=== PATIENT | female | born 1960 | race Caucasian/White ===

== ENCOUNTER 2016-06-15 10:11 | Day surgery (SDC) | payer MEDICARE, MEDICAID ==
[~2016-06-15] VITALS: Ht 165.1 cm; Wt 79.5 kg
[2016-06-15] VITALS (8 sets, daily range): BP systolic 126–139; BP diastolic 68–74; PULSE 76–82; RESP 12–25; O2SAT 92–97
[~2016-06-15 10:11] MED LIST: DOXY100C2 PO; DULO20CA PO; FLUT1AER IH; LEVO137T18 PO; LIT450 PO; OMEP20TA24 PO
[2016-06-15] MEDS ORDERED: MetoCLOpramide 5 mg/mL 2 mL Inj ONE (10:12)
[2016-06-15] MEDS ORDERED: Propofol 10,000 mCg/mL 20 mL Inj ONE (10:12)
[2016-06-15] MEDS ORDERED: Dexamethasone 4 mg/mL Inj ONE (10:12)
[2016-06-15] MEDS ORDERED: Ondansetron 2 mg/mL 2 mL Inj ONE (10:12)
[2016-06-15] MEDS ORDERED: fentaNYL-PF 50 mCg/mL 2 mL Inj ONE (10:12)
[2016-06-15] MEDS: Lactated Ringer's 1,000 ML IV SCH ×2 (10:25→12:50)
[2016-06-15] MEDS ORDERED: GABA800T2 PO ×2 (11:01)
[2016-06-15] MEDS ORDERED: Ropivacaine-PF 0.5% 30 mL Inj INFILTRATE ONE (13:15)
[2016-06-15] MEDS ORDERED: Lactated Ringer's 500 ML IV PRN (13:34)
[2016-06-15] MEDS ORDERED: Lactated Ringer's 1,000 ML IV SCH (13:34)
[2016-06-15] MEDS ORDERED: hydrALAZINE 20 mg/mL Inj IVPUSH PRN (13:35)
[2016-06-15] MEDS ORDERED: MetoCLOpramide 5 mg/mL 2 mL Inj IVPUSH PRN (13:35)
[2016-06-15] MEDS ORDERED: Phenylephrine 10,000 mCg/mL Inj IVPUSH PRN (13:35)
[2016-06-15] MEDS ORDERED: Ondansetron 2 mg/mL 2 mL Inj IVPUSH PRN (13:35)
[2016-06-15] MEDS ORDERED: fentaNYL-PF 50 mCg/mL 2 mL Inj IVPUSH PRN (13:35)
[2016-06-15] MEDS ORDERED: HYDROmorphone 1 mg/mL Inj IVPUSH PRN (13:35)
[2016-06-15] MEDS ORDERED: Labetalol 5 mg/mL 4 mL Inj IV PRN (13:35)
[2016-06-15] MEDS ORDERED: Atropine 0.4 mg/mL Inj IVPUSH PRN (13:35)
[2016-06-15] MEDS ORDERED: EPHEDrine Sulfate 50 mg/mL Inj IVPUSH PRN (13:35)
[2016-06-15] MEDS ORDERED: Ketorolac 15 mg/mL Inj IVPUSH ONE (14:00)
[2016-06-15] MEDS ORDERED: HYDROcodone-APAP 5-325 mg Tablet PO PRN (14:00)
--- NOTE | 2016-06-15 17:00 | PCM.ANEP1 ---
Post Anesthesia Phase 1 PACU Phase 1 Assessment Vital Signs Vital Signs Date Time Temp Pulse Resp B/P Pulse Ox O2 Delivery O2 Flow Rate FiO2 06/15/16 14:12 37 77 24 131/73 95 Room Air 06/15/16 14:10 79 12 132/73 96 Room Air 06/15/16 14:03 76 21 131/72 97 Room Air 06/15/16 13:54 77 13 129/68 95 Room Air 06/15/16 13:50 82 25 139/70 95 Room Air 06/15/16 13:46 36.6 81 14 138/74 97 Room Air 06/15/16 10:47 36.8 78 18 126/72 92 Room Air 06/15/16 10:30 36.8 78 18 126/72 92 Room Air Anesthetic Administered: GA Level of Alertness: Awake, talking BELTRE's with Equal Strength: Yes Pain: No Nausea or Vomiting: No Oxygen Delivery: Room Air Lungs: Clear to Auscultation, Normal Air Movement Dermatome Level: Full Sensation Jacobo Garza MD Jun 15, 2016 17:00
--- NOTE | 2016-06-15 17:00 | PCM.HPANE ---
Patient Data Surgeon Admitting Provider: Attending Provider:Jacobo Vargas DO Primary Care Physician:Sonia Vivas PA-C Other Provider:Selina Gongora Anesthesia Reason for Visit Left Hand Mass Ht/WT & BMI Height (Feet): 5 Height (Inches): 5.00 Weight (Kilograms): 79.500 Body Mass Index 29.00 Allergies Coded Allergies: cephalexin (Verified Allergy, Severe, c-diff, 06/11/16) ciprofloxacin (Verified Allergy, Unknown, 06/11/16) Uncoded Allergies: MONOHYDRATE (Allergy, Unknown, 06/11/16) Diabetes History Hx Diabetes?: No Medications Home Meds Incl Beta Aracelis: No Reported Medications Gabapentin 800 Mg Tablet2,000 Mg PO HS Ref 0 06/15/16 Gabapentin 800 Mg Tablet1,600 Mg PO DAILY Ref 0 06/15/16 Omeprazole Magnesium (Prilosec Otc)20 Mg Tablet.dr40 Mg PO DAILY #1 PKG Ref 0 06/11/16 [place] Carbonate ([place] Carbonate XR)450 Mg Tablet.er450 Mg PO HS 30 Days 06/11/16 Levothyroxine (Levoxyl)137 Mcg Zjpwbh589 Mcg PO DAILY Ref 0 06/11/16 Fluticasone/Vilanterol (Breo Ellipta 100-25 Mcg INH)1 Each Aer.pow.ba1 Each IH BID 06/11/16 Duloxetine (Cymbalta)20 Mg Qrtmfys90 Mg PO DAILY Ref 0 06/11/16 Discontinued Reported Medications Gabapentin 800 Mg Iopbkt693 Mg PO DAILY Ref 0 06/15/16 Doxycycline Hyclate 100 Mg Jwffoym844 Mg PO BID 06/11/16 History History of ENT Problems?: No Denture Type: Partial- Upper Partial- Lower Hx of Heart Problems?: Yes Cardiovascular History: Positive for:: Chest Pain (2009 rule out, NON CARDIAC) Hx of Respiratory Problem?: Yes Respiratory History: Positive for:: Asthma (inhaler use) Hx of GI Problems?: Yes Gastrointestinal History: Positive for:: Gastroesphageal Reflux Hx of Problems?: No Genitourinary History: Positive for:: Urinary Tract Infection Skin History: Positive for:: History Skin Disorders? (EXZEMA) Denies:: Pressure Ulcers Hx Musculoskeletal Problems?: Yes Hx of Psycho/Social Problems?: Yes Psycho Social History: Positive for:: Bipolar Disorder Hx Surgeries?: Yes (left finger, appy, left thumb cholecystectomy) Hx Any Other Health Problems?: Yes Other History: Positive for:: Hospitalization (C-DIFF 1999) Thyroid Disease (hypo) Denies:: Cancer Hx Diabetes: No Hx Alcohol Use: NoHx Substance Use: No Stop/Bang S-Snoring: Do You Snore Loudly: No T-Tired: feel tired, fatigued: Yes O-Obsered: Observed not breath: No P-Blood Pressure: treated: No B- Body Mass Index > 35 kg/m2: No A- Age over 50: Yes N- Neck Large Circumference: No G- Gender Male: No ALYSON Total Score: 2 Risk Assessment Category Category 1A: Patient has history of documented sleep apnea, and HAS NOT received any narcotic, sedative or anesthesia administration during this stay. Category 1B: Patient has history of documented sleep apnea, and HAS received any narcotic , sedative or anesthesia administration during this stay Category 2: Patient has SUSPECTED Obstructive Sleep Apnea, and HAS received any narcotic , sedative or anesthesia administration during this stay. Category 3: Patient has SUSPECTED Obstructive Sleep Apnea and HAS NOT received narcotic, sedative or anesthesia administration during this stay. Category 4: Outpatient in Procedural Areas with known sleep apnea or who screen positive for High Risk via the STOP/BANG questionnaire. Exam Exam Vital Signs Vital Signs Date Time Temp Pulse Resp B/P Pulse Ox O2 Delivery O2 Flow Rate FiO2 06/15/16 10:47 36.8 78 18 126/72 92 Room Air 06/15/16 10:30 36.8 78 18 126/72 92 Room Air General Appearance: Alert, Oriented X3, Cooperative, No Acute Distress HEENT/AIRWAY: MP 2 Lungs: Clear to Auscultation, Normal Air Movement Heart: Exam Unremarkable, Regular Rate/Rhythm, No Murmurs/Rubs/Gallops Meds/Labs/Diagnostics Admission Meds Current Medications Lactated Ringer's (Lr) 1,000 ml @ 10 mls/hr Q24H IV Last administered on t 10:25; Start 06/15/16 at 05:00; Stop 06/19/16 at 08:59 Plan Impression Patient chart reviewed, patient interviewed and anesthestic plan with risks, benefits, and alternatives discussed, and informed consent obtained. NPO Status: 8pm ASA Physical Status: ASA2 Mod Systemic Disease Anesthetic Plan: GA Bene/Risks/Altern/Consents: Yes HP Complete Prior to Induction: Yes Jacobo Garza MD Jun 15, 2016 11:18
--- NOTE | 2016-06-15 17:01 | PCM.ANEP2 ---
Post Anesthesia Evaluation ASA/CMS Post Anesthesia VS in Patient's Normal Range?: Yes Resp Stable; Airway Patent?: Yes CV Function & Hydration Stable: Yes Mental Status Recovered?: Yes Pain control Satisfactory?: Yes N/V Control Satisfactory?: Yes Jacobo Garza MD Jun 15, 2016 17:00
--- NOTE | 2016-06-15 23:11 | OP ---
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 PROCEDURE: Left thumb palmar fibromatosis resection. SURGEON: Jacobo Vargas D.O. WINDOWS SYSTEMS ENGINEER: Rony Kelly D.O. 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 She wished to have this surgically removed. We discussed risks, benefits, and possible complications of surgery, including, but not limited to, injury to the digital nerve. All questions were answered and she wished to proceed. PROCEDURE IN DETAIL: The patient is brought to the operating room. She was given an LMA general anesthetic. The left upper extremity was sterilely prepped and draped. The tourniquet was used for hemostasis. An incision was made over the volar left thumb. I did a Armida zigzag technique to avoid the palmar crease of the thumb MCP joint and dissected carefully through the subcutaneous tissue where I encountered the fibrotic tissue. I then carefully dissected out the radial and ulnar digital artery and nerve to protect them. The fibrotic tissue was then removed. It was a pretendinous Dupuytren's tight band of tissue. This was resected and sent for pathology. The wound was then irrigated and closed with interrupted nylon suture. Naropin was added as an adjunct local anesthetic. Sterile dressings were applied. Patient tolerated the procedure well. Blood loss was minimal. POSTOPERATIVE PROTOCOL: Have the patient maintain her dressing for 3-4 days, ice and elevate and follow up in two weeks or sooner if needed. KIMBERLY
--- NOTE | 2016-06-17 10:55 | PATH ---
SURGICAL PATHOLOGY Attending Physician:Jacobo Vargas DO CASE STATUS: Signed Out PATIENT NAME: KADY ANDREW PID: [id number] : 1960 DATE COLLECTED:06/15/2016 21:57 SPECIMEN: Mass, NOS CLINICAL HISTORY: LEFT THUMB FIBROMA MASS 1). LEFT THUMB FIBROMA FINAL DIAGNOSIS: 1.MASS FROM LEFT THUMB: FASCIAL FIBROMATOSIS. ICD10 CODE M72.9 GROSS DESCRIPTION: The specimen is received in one formalin filled container labeled with the patient's name, sublabeled "left thumb fibroma" and consists of 2 yellow-rodriguez portions of tissue which aggregate to 1.5 x 0.7 x 0.5 CM. The specimen is inked blue. The specimen is sectioned into multiple pieces and entirely submitted in one cassette. 06/15/2016 [facility] MICRO DESCRIPTION: See diagnosis. ICD-9 CODES: CPT CODES: 1: 60028 Electronically Signed Out Vinicius Ramires MD [facility] Pathology [facility] [address], [place] [address] Technical component performed at [facility], [facility] [address], [place], [address]
== END 2016-06-15 23:59 | disposition home or self-care (01) ==
LOC: SAS 10:11
PROVIDERS: ATTEND Orthopaedic Surgery
DX: M72.0 Palmar fascial fibromatosis [Dupuytren] (principal); J45.909 Unspecified asthma, uncomplicated
CPT/HCPCS: 26045; J1100; J2405; J2765; J2795; J7120